=== PATIENT | female | born 1995 | race Caucasian/White ===

== ENCOUNTER 2018-12-23 11:23 | Emergency (ER) | payer OTHER ==
--- NOTE | 2018-12-23 11:36 | ED Physician Documentation ---
PD HPI FEMALE - Stated complaint Stated Complaint: 8 WKS PREG/SPOTTING - History obtained from History obtained from: Patient - History of Present Illness Timing - onset: Today Timing - duration: Days (1) Timing - details: Gradual onset Pain level max: 0 Pain level max: 0 Associated symptoms: Vaginal bleeding. No: Fever, Chest/shoulder pain, Abdominal pain, Back pain, Pelvic pain, Vaginal pain, Vaginal discharge, Dysuria, Urinary frequency, Hematuria Contributing factors: (8 weeks) [employer] History: G (3), P (0), Miscarriage(s) (2) Recently seen: Not recently seen - Additional information Additional information: Patient states light pink spotting today. Concerned about potential miscarriage. She called the [facility] advice line who referred her to the emergency department. Review of Systems Constitutional: denies: Fever, Chills GI: denies: Vomiting, Diarrhea Skin: denies: Rash Musculoskeletal: denies: Neck pain, Back pain PD PAST MEDICAL HISTORY - Past Medical History Past Medical History: No - Past Surgical History Past Surgical History: No - Present Medications Home Medications: Ambulatory Orders Medication Instructions Recorded Confirmed Pnv95/Ferrous Fumarate/FA 1 tab PO DAILY 12/23/18 12/23/18 [ Tablet] - Allergies Allergies/Adverse Reactions: Allergies Allergy/AdvReac Type Severity Reaction Status Date / Time No Known Drug Allergies Allergy Verified 12/23/18 11:38 - Living Situation Living Situation: reports: With family Living Arrangement: reports: At home - Social History Does the pt have substance abuse?: No - Family History Family history: reports: Non contributory PD ED PE NORMAL - Vitals Vital signs reviewed: Yes - General General: Alert and oriented X 3, No acute distress, Well developed/nourished - HEENT HEENT: Moist mucous membranes - Neck Neck: Supple, no meningeal sign - Cardiac Cardiac: RRR, Strong equal pulses - Respiratory Respiratory: No respiratory distress, Clear bilaterally - Abdomen Abdomen: Soft, Non tender, Non distended - Female Female : Pt declined - Back Back: No CVA TTP - Derm Derm: Warm and dry - Extremities Extremities: No edema - Neuro Neuro: Alert and oriented X 3 - Psych Psych: Normal mood, Normal affect Results - Vitals Vitals: Vital Signs - 24 hr 12/23/18 11:34 Temperature 37.2 C Heart Rate 95 Respiratory 18 Rate Blood Pressure 139/97 H O2 Saturation 100 Oxygen O2 Source Room air - Labs Labs: Laboratory Tests 12/23/18 12/23/18 12/23/18 11:40 11:40 11:40 WBC 8.7 RBC 4.46 Hgb 13.3 Hct 40.0 MCV 89.7 MCH 29.8 MCHC 33.3 RDW 13.1 Plt Count 371 MPV 8.8 Neut # (Auto) 5.8 Lymph # (Auto) 2.1 [place] # (Auto) 0.6 Eos # (Auto) 0.1 Baso # (Auto) 0.1 Absolute Nucleated RBC 0.00 Nucleated RBC % 0.0 Sodium 138 Potassium 3.7 Chloride 108 Carbon Dioxide 21 Anion Gap 9.0 BUN 7 Creatinine 0.7 Estimated GFR (MDRD) 103 Glucose 102 H Calcium 8.8 Total Bilirubin 0.5 AST 10 ALT 14 Alkaline Phosphatase 52 Total Protein 7.3 Albumin 3.7 Globulin 3.6 Albumin/Globulin Ratio 1.0 Lipase 26 HCG, Quant 526177.00 Urine Color Urine Clarity Urine pH Ur Specific [place] Urine Protein Urine Glucose (UA) Urine Ketones Urine Occult Blood Urine Nitrite Urine Bilirubin Urine Urobilinogen Ur Leukocyte Esterase Ur Microscopic Review Urine Culture Comments 12/23/18 11:45 WBC RBC Hgb Hct MCV MCH MCHC RDW Plt Count MPV Neut # (Auto) Lymph # (Auto) [place] # (Auto) Eos # (Auto) Baso # (Auto) Absolute Nucleated RBC Nucleated RBC % Sodium Potassium Chloride Carbon Dioxide Anion Gap BUN Creatinine Estimated GFR (MDRD) Glucose Calcium Total Bilirubin AST ALT Alkaline Phosphatase Total Protein Albumin Globulin Albumin/Globulin Ratio Lipase HCG, Quant Urine Color YELLOW Urine Clarity CLEAR Urine pH 7.0 Ur Specific [place] 1.010 Urine Protein NEGATIVE Urine Glucose (UA) NEGATIVE Urine Ketones NEGATIVE Urine Occult Blood NEGATIVE Urine Nitrite NEGATIVE Urine Bilirubin NEGATIVE Urine Urobilinogen 0.2 (NORMAL) Ur Leukocyte Esterase NEGATIVE Ur Microscopic Review NOT INDICATED Urine Culture Comments NOT INDICATED - Rads (name of study) OB ultrasound Radiology: Prelim report reviewed, EMP read contemporaneously, See rad report (1. Single viable intrauterine at EGA 8 weeks/2 days with MIGUEL ÁNGEL 5 1 20 based on crown-rump length. 2. A small perigestational fluid collection measuring 1 cm, at the inferior aspect of gestational sac) PD MEDICAL DECISION MAKING - ED course Complexity details: reviewed results, re-evaluated patient, considered differential, d/w patient ED course: 23-year-old female with a small darryn-gestational fluid collection. Threatened today. IUP present on ultrasound. Viable . Approximately 8 weeks and 2 days. We will follow-up with OB for further care. Patient counseled regarding signs and symptoms for which I believe and urgent re- evaluation would be necessary. Patient with good understanding of and agreement to plan and is comfortable going home at this time This document was made in part using voice recognition software. While efforts are made to proofread this document, sound alike and grammatical errors may occur. Departure - Departure Disposition: 01 Home, Self Care Clinical Impression: Vaginal bleeding affecting early Condition: Good Instructions: ED Miscarriage Poss Follow-Up: YESENIA PLAZA MD [Primary Care Provider] - Within 1 week Comments: Follow-up with your OB for further care. Return if you worsen. Your laboratory testing is normal today. Your ultrasound shows an intrauterine at approximately 8 weeks and 3 days. Discharge Date/Time: 12/23/18 13:02
[2018-12-23 11:38] VITALS: BP 139/97
[2018-12-23 11:51] LABS: BILIRUBIN,URINE NEGATIVE (NEGATIVE); GLUCOSE, URINE (UA) NEGATIVE (NEGATIVE); KETONES,URINE (UA) NEGATIVE (NEGATIVE); LEUKOCYTE ESTERASE, URINE NEGATIVE (NEGATIVE); NITRITE,URINE NEGATIVE (NEGATIVE); OCCULT BLOOD,URINE NEGATIVE (NEGATIVE); PROTEIN,URINE NEGATIVE (NEGATIVE); UROBILINOGEN,URINE 0.2 (NORMAL) E.U./dL (NORMAL)
[2018-12-23 11:51] LABS: BASOPHILS # (AUTO) 0.1 10^3/uL (0.0-0.1); BASOPHILS % (AUTO) 0.6 %; EOSINOPHILS # (AUTO) 0.1 10^3/uL (0.0-0.7); EOSINOPHILS % (AUTO) 0.9 %; HGB - HEMOGLOBIN 13.3 g/dL (12.0-16.0); LYMPHOCYTES # (AUTO) 2.1 10^3/uL (1.5-3.5); LYMPHOCYTES % (AUTO) 24.5 %; MEAN CORPUSCULAR HEMOGLOBIN 29.8 pg (27.0-31.0); MEAN CORPUSCULAR HGB CONC 33.3 g/dL (32.0-36.0); MEAN CORPUSCULAR VOLUME 89.7 fL (81.0-99.0); MEAN PLATELET VOLUME 8.8 fL (7.9-10.8); MONOCYTES # (AUTO) 0.6 10^3/uL (0.0-1.0); MONOCYTES % (AUTO) 7.4 %; NEUTROPHILS # (AUTO) 5.8 10^3/uL (1.5-6.6); NEUTROPHILS % (AUTO) 66.4 %; PLT - PLATELET COUNT 371 10^3/uL (130-450); RED BLOOD COUNT 4.46 10^6/uL (4.20-5.40); RED CELL DISTRIBUTION WIDTH 13.1 % (12.0-15.0); WHITE BLOOD COUNT 8.7 x10^3/uL (4.8-10.8)
[2018-12-23 11:55] LABS: CLARITY,URINE CLEAR (CLEAR)
[2018-12-23 12:01] LABS: ALBUMIN 3.7 g/dL (3.2-5.5); BILIRUBIN,TOTAL 0.5 mg/dL (0.2-1.0); CALCIUM 8.8 mg/dL (8.5-10.3); CREATININE 0.7 mg/dL (0.4-1.0); TOTAL PROTEIN 7.3 g/dL (6.7-8.2)
--- NOTE | 2018-12-23 13:38 | Ultrasound Report ---
Reason: 8 weeks preg, VB Procedure Date: 12/23/2018 Accession Number: [id number] / [id number] Procedure: US - OB First Trimester CPT Code: FULL RESULT: EXAM: FIRST TRIMESTER OBSTETRIC ULTRASOUND (Less than 11 weeks) EXAM DATE: 12/23/2018 12:38 PM. CLINICAL HISTORY: 8 weeks preg, VB. LMP: Unknown. COMPARISONS: None. TECHNIQUE: Transabdominal and transvaginal ultrasound examination with static image documentation. A single intrauterine gestational sac. ASSESSMENT: Gestational Sac: Single intrauterine. Mean gestational sac diameter: 3.4 cm = 8 weeks/4 days. Embryo: CRL (crown-rump length) 1.8 cm = 8 weeks/2 days. Cardiac activity: 173 beats per minute. Yolk sac: 2.6 mm. Other: Small perigestational fluid measuring 1 cm, at the inferior aspect of gestational sac.. MATERNAL STRUCTURES: Uterus: Anteverted/Retroverted. Unremarkable. Cervix: Closed. Right Ovary/Adnexa: The ovary measures 2.4 x 1.6 x 2.1 cm, volume 4.2 cc. Unremarkable. Left Ovary/Adnexa: The ovary measures 2.7 x 1.6 x 3 cm, volume 6.9 cc. Unremarkable. Free Fluid: None. Other: None. IMPRESSION: 1. Single viable intrauterine at EGA 8 weeks/2 days with MIGUEL ÁNGEL 5 1 20 based on crown-rump length. 2. A small perigestational fluid collection measuring 1 cm, at the inferior aspect of gestational sac. RADIA The call report notification system was initiated by Dr. Rosa Antonio at 01:37 PM on 12/23/2018. ADDENDUM: 12/23/18 13:51 The above call report findings were discussed with Dr. Gama Rodriguez by Dr. Rosa Antonio at 01:51 PM on 12/23/2018.
== END 2018-12-23 13:02 | disposition home or self-care (01) ==
LOC: ED 11:23
DX: O20.0 Threatened abortion (principal); Z3A.08 8 weeks gestation of pregnancy
CPT/HCPCS: 36415; 76801; 76817; 80053; 81001; 81003; 83690; 84702; 85025; 87086; 99284

== ENCOUNTER 2019-02-06 20:09 | Emergency (ER) | payer OTHER ==
--- NOTE | 2019-02-06 20:29 | ED Physician Documentation ---
PD HPI ABD PAIN - Stated complaint Stated Complaint: BLEEDING/15 WKS - Chief complaint Chief Complaint: Abd Pain - History obtained from History obtained from: Patient - History of Present Illness Timing - onset: Today (G3, P0 at 15 weeks gestation presents with very very slight vaginal bleeding tonight associated with significant anxiety because of previous miscarriages. Blood type is known to be B+.) Review of Systems Constitutional: denies: Fever, Chills GI: denies: Abdominal Pain, Nausea, Diarrhea : denies: Dysuria PD PAST MEDICAL HISTORY - Past Surgical History Past Surgical History: No - Present Medications Home Medications: Ambulatory Orders Medication Instructions Recorded Confirmed Pnv No.95/Ferrous Fum/Folic AC 1 tab PO DAILY 12/23/18 12/23/18 [ Tablet] - Allergies Allergies/Adverse Reactions: Allergies Allergy/AdvReac Type Severity Reaction Status Date / Time No Known Drug Allergies Allergy Verified 02/06/19 20:15 - Social History Does the pt smoke?: No Smoking Status: Never smoker Does the pt have substance abuse?: No PD ED PE NORMAL - Vitals Vital signs reviewed: Yes - General General: Alert and oriented X 3, No acute distress - Abdomen Abdomen: Soft, Non tender - Female Female : Other (Bedside ultrasound demonstrates single live intrauterine with heart rate of 154.) - Neuro Neuro: Alert and oriented X 3, Normal speech Results - Vitals Vitals: Vital Signs - 24 hr 02/06/19 02/06/19 02/06/19 20:15 20:31 20:55 Temperature 36.7 C 36.6 C Heart Rate 115 H 93 Respiratory 16 16 15 Rate Blood Pressure 140/84 H 110/92 H O2 Saturation 99 98 Oxygen O2 Source Room air - Labs Labs: Laboratory Tests 02/06/19 20:18 Urine Color COLORLESS Urine Clarity CLEAR Urine pH 7.0 Ur Specific [place] <=1.005 Urine Protein NEGATIVE Urine Glucose (UA) NEGATIVE Urine Ketones NEGATIVE Urine Occult Blood NEGATIVE Urine Nitrite NEGATIVE Urine Bilirubin NEGATIVE Urine Urobilinogen 0.2 (NORMAL) Ur Leukocyte Esterase NEGATIVE Ur Microscopic Review NOT INDICATED Urine Culture Comments NOT INDICATED PD MEDICAL DECISION MAKING - ED course ED course: 23-year-old at 15 weeks who presents with very slight vaginal bleeding today. This got her all worked up and she is very anxious. She is very relieved to see a normal live intrauterine on ultrasound. Departure - Departure Disposition: 01 Home, Self Care Clinical Impression: Vaginal bleeding affecting early Condition: Good Record reviewed to determine appropriate education?: Yes Instructions: ED Pelvic Pain Preg UKO 2 or 3 Tri Comments: Call your doctor to arrange a follow-up appointment, make the next available appointment. In the interim, return anytime if worse or if new symptoms develop. Discharge Date/Time: 02/06/19 20:56
[2019-02-06 20:36] LABS: BILIRUBIN,URINE NEGATIVE (NEGATIVE); GLUCOSE, URINE (UA) NEGATIVE (NEGATIVE); KETONES,URINE (UA) NEGATIVE (NEGATIVE); LEUKOCYTE ESTERASE, URINE NEGATIVE (NEGATIVE); NITRITE,URINE NEGATIVE (NEGATIVE); OCCULT BLOOD,URINE NEGATIVE (NEGATIVE); PROTEIN,URINE NEGATIVE (NEGATIVE); UROBILINOGEN,URINE 0.2 (NORMAL) E.U./dL (NORMAL)
[2019-02-06 20:38] LABS: CLARITY,URINE CLEAR (CLEAR)
[2019-02-06 20:56] VITALS: BP 110/92
== END 2019-02-06 20:56 | disposition home or self-care (01) ==
LOC: ED 20:09
DX: O46.92 Antepartum hemorrhage, unspecified, second trimester (principal); Z3A.15 15 weeks gestation of pregnancy
CPT/HCPCS: 81001; 81003; 87086; 99282; 99283